=== PATIENT | male | born 1940 | race Caucasian/White ===

== ENCOUNTER → 2017-10-23 14:24 | Outpatient (CLI) | payer MEDICARE, SELFPAY ==
--- NOTE | 2017-10-23 | DI.US.S_ITS ---
PROCEDURE: US PERIPH VENOUS UP EXTREM LT COMPARISON: None. INDICATIONS: HEMATOMA OF LEFT ARM FINDINGS: There is normal compression, Doppler augmentation, and color flow identified within the left upper extremity deep veins. Specifically, the imaged portions of the subclavian and the axillary and brachial veins are within normal limits. Imaged portions of the internal jugular vein are unremarkable. The imaged portions of the basilic veins are unremarkable. No obvious hematoma is appreciated involving the imaged portion of the left biceps muscle. IMPRESSION: 1. No evidence of left upper extremity deep vein thrombosis. 2. No obvious hematoma is evident involving the left biceps muscle. Please consider MRI for better characterization of the biceps muscle, if indicated. Dictated by: Enrique Macedo M.D. on 10/23/2017 at 14:37 Approved by: Enrique Macedo M.D. on 10/23/2017 at 14:40
== END ==
PROVIDERS: PCP Family Medicine; Visit Provider Specialist/Technologist Athletic Trainer
DX: S40.022A Contusion of left upper arm, initial encounter (principal)
CPT/HCPCS: 93971

== ENCOUNTER 2024-10-28 07:27 | Emergency (ER) | payer MEDICARE, SELFPAY ==
[2024-10-28 07:37] VITALS: BP 123/61; PULSE 65; RESP 16; TEMP 36.8; O2SAT 97; BMI 27.9
--- NOTE | 2024-10-28 08:15 | DI.RAD.S_ITS ---
PROCEDURE: XR KNEE LT 4V INDICATIONS: Fall >1 wk ago, progressively worse pain, non weight bearing TECHNIQUE: 4 views of the knee were acquired. COMPARISON: None. FINDINGS AND IMPRESSION: Moderate degenerative changes of the left knee, with joint space narrowing most significant the medial compartment. No acute displaced fracture is present. No dislocation. Nxxw-ji-[id number] joint effusion. If there is high concern for further derangement, consider MRI evaluation. Dictated by: Saman Azar M.D. on 10/28/2024 at 8:35 Approved by: Saman Azar M.D. on 10/28/2024 at 8:36
--- NOTE | 2024-10-28 10:09 | ED_ITS ---
HPI - Extremity Injury (Lower) General Chief Complaint: Extremity Injury, Lower Stated Complaint: Left pain Time Seen by Provider: 10/28/24 10:05 Source: patient, RN notes reviewed and old records reviewed Mode of arrival: Family Vehicle Limitations: no limitations History of Present Illness HPI Narrative: 84-year-old male history of rheumatoid arthritis with complaint of left knee pain that began a week ago after a fall. Patient had had a recent flare in his right foot but had no trauma. He was treated with methylprednisolone and improved over some time. About 8 or 9 days ago patient had a fall onto his left side did not have any pain in the 1st day but the 2nd day had quite a bit of left knee pain and left elbow and shoulder pain. Patient states elbow and shoulder pain has a resolved left knee pain has been persistent. He states it is painful to weightbear, he was had some swelling but no redness or warmth. He did not appreciate any ecchymosis. States he can straight and bend it without much issue. Majority hip pain tends to be on the medial side and below the patella. Patient does not have any sensation of clicking or grinding, no crepitus. He notes he was had some issues in the past in that knee and has been told by an orthopedic surgeon need to be replaced at some point. Patient has never had any interventions for it. He tried some hydrocodone earlier this week which has a little bit helpful. Majority of his discomfort is with weight- bearing. States it has not been improving has been in touch with his nursing service administrator who asked that he come to the ER to be evaluated. The goal is for MR. They did discuss starting his methylprednisolone but wanted him to be evaluated 1st. Patient is accompanied by his . Related Data Home Medications Medication Instructions Recorded Confirmed methotrexate sodium 25 mg/mL 25 mg IM QWEEK 01/09/18 01/02/19 injection solution metoprolol succinate 25 mg 12.5 mg PO DAILY 01/09/18 01/02/19 tablet,extended release 24 hr sulfasalazine 500 mg tablet 1 gram PO BID 01/09/18 01/02/19 Previous Rx's Medication Instructions Recorded methylprednisolone 4 mg tablet 1 pac PO SEE INSTRUCTIONS ##1 12/11/16 oxycodone-acetaminophen 5 mg-325 1 tab PO Q4HP PRN #30 tabs 12/11/16 mg tablet (Percocet) hydrocodone 5 mg-acetaminophen 325 1 tab PO Q6H PRN pain #10 tabs 10/28/24 mg tablet methylprednisolone 4 mg tablets in See Rx Instructions PO .COMPLEX 10/28/24 a dose pack (Medrol (Gaurav)) #21 ea Allergies Allergy/AdvReac Type Severity Reaction Status Date / Time No Known Drug Allergies Allergy Verified 10/28/24 10:40 Review of Systems Review of Systems ROS Unobtainable: All systems reviewed & are unremarkable except as noted in HPI and below Patient History Medical History (Updated 10/28/24 @ 10:43 by Bozena Vera DO) Obstructive sleep apnea syndrome Primary insomnia Excessive daytime sleepiness Social History marital status: details: to [place], lives in [place] household members: spouse lives independently: Yes caregiver/support person: No housing: house Exam Narrative Exam Narrative: GENERAL: Alert and oriented x three, male in mild distress. HEENT: Head normocephalic, atraumatic, EOMI, pupils reactive, face symmetric, moist mucous membranes NECK: Supple, full range of motion CARDIOVASCULAR: Regular rate and rhythm without murmurs, rubs or gallops. RESPIRATORY: Breath sounds equal bilaterally, no wheezes rales or rhonchi. ABDOMEN: Soft, nontender. Normoactive bowel sounds all 4 quadrants. No guarding or rebound, rigidity, no mass EXTREMITIES: Normal range of motion, no clubbing. Patient was mild edema. No obvious deformity. No ecchymosis, no warmth or erythema. Patient was some mild tenderness over the lateral knee on tibial plateau. He also has a little bit of discomfort over the patella and just below. Has full range of motion without any pain. Has discomfort with the anterior drawer but no laxity appreciated with anterior-posterior drawer. Also has increased discomfort with varus but asymptomatic with valgus testing. Negative with compression test. Neurovascularly intact. 2+ dorsalis pedis. Normal sensation throughout. NEUROLOGICAL: Cranial nerves II through XII grossly intact. Moving all extremities SKIN: Warm, dry, no petechiae, no rashes or lesions. Initial Vital Signs Initial Vital Signs: Vital Signs Temperature 98.3 F 10/28/24 07:37 Pulse Rate 65 10/28/24 07:37 Respiratory Rate 16 05/20/25 07:37 Blood Pressure 123/61 05/20/25 07:37 Pulse Oximetry 97 10/28/24 07:37 Oxygen Delivery Method Room Air 10/28/24 07:37 Course Orders Ordered: ED Orders 10/28/24 08:15 XR knee LT 4V Stat Discontinued Medications Hydrocodone Bitart/Acetaminophen (Hydrocodone/Acet 5/325 Tablet) 1 tab PO NOW ONE Stop: 10/28/24 10:36 Last Admin: 10/28/24 10:43 Dose: 1 tab Documented By: SHANTHI Vital Signs Vital signs: Vital Signs - 8 hr 10/28/24 07:37 10/28/24 10:50 Temperature 98.3 F 98 F Pulse Rate 65 55 L Respiratory Rate 16 18 Blood Pressure 123/61 120/68 Pulse Oximetry 97 97 Oxygen Delivery Method Room Air Room Air MDM - Extremity Injury (Lower) MDM Narrative Medical decision making narrative: Left knee x-ray shows moderate degenerative changes of the left knee with joint space narrowing most significant medial compartment. No acute displaced fracture present. No dislocation. Oyax-fx-lfhqdcvy joint effusion. You have high concern for further derangement consider MR evaluation. 84-year-old male history of rheumatoid arthritis had a fall proximally week ago could weightbear initially that has become increasingly painful over time. Has been in contact with providers there recommended come to evaluation to ER before starting steroids for potential rheumatoid flare. On exam patient's symptoms seem most consistent with traumatic injury over flare of his rheumatoid arthriti s. Does have an orthopedic surgeon he can follow up with we will place a knee immobilizer, can weightbear as tolerated. We will give a short course of pain medication. Discharge Plan Departure Patient Disposition: Home Clinical Impression: Knee pain, left, Effusion of knee joint, left Instructions: DI for Knee Pain Activity Restrictions/Additional Instructions: Your x-ray today does show little bit of a joint effusion and a lot of degenerative changes to your knee no fractures or dislocations. I suspect your symptoms are more from the recent trauma from your fall and less likely to be from your rheumatoid arthritis. Please follow up with Orthopedic surgery and/or your nursing service administrator. Talk with your nursing service administrator if they feel steroids are warranted a prescriptions included. You can can take [place] 1-2 tablets every 6 hours as needed for pain. This medication can make you sleepy do not drive, perform hazardous activities or make any major decisions while taking it. This medication will make you constipated please take a stool softener once to twice daily until stools are so ft and regular. Weightbear as tolerated Splint Care: Keep splint clean and dry. Elevated affected body part to decrease swelling. OK to use ice pack on the affected body part. Use for 15-20 minutes each time, for 5-6x per day. If you develop worsening pain, numbness, tingling, discoloration of the affected body part, adjust the knee immobilizer, and either see your doctor for an urgent re-assessment, or return to the Emergency Department. Return to the Emergency Department for any new or worsening symptoms. Prescriptions: New hydrocodone-acetaminophen 5-325 mg tablet 1 tab PO Q6H PRN (Reason: pain) Qty: 10 0RF methylprednisolone [Medrol (Gaurav)] 4 mg tablets,dose pack See Rx Instructions .ROUTE .COMPLEX Qty: 21 0RF Rx Instructions: orally per package directions No Action methylprednisolone 4 MG tablet 1 pac PO SEE INSTRUCTIONS Qty: 1 0RF oxycodone-acetaminophen [Percocet] 5 MG/325 MG tablet 1 tab PO Q4HP PRNQty: 30 0RF metoprolol succinate 25 mg tablet extended release 24 hr 12.5 mg PO DAILY sulfasalazine 500 mg tablet 1 gram PO BID methotrexate sodium 25 mg/mL solution 25 mg IM QWEEK Stand Alone Forms: Patient Portal/API/Survey
[2024-10-28] MEDS: HYDROCODONE/ACET 5/325 TABLET 1 TAB PO (10:43)
[2024-10-28 10:50] VITALS: BP 120/68; PULSE 55; RESP 18; TEMP 36.6; O2SAT 97
== END 2024-10-28 11:01 | disposition home or self-care (01) ==
PROVIDERS: Emergency Provider Emergency Medicine
DX: M25.462 Effusion, left knee (principal)
CPT/HCPCS: 73564; 99283

== ENCOUNTER 2025-03-31 14:50 | Day surgery (SDC) | payer MEDICARE, SELFPAY ==
--- NOTE | 2025-03-31 | PATH_ITS ---
[facility] Accession Number: [id number] No. of containers..05 Tissue . 01 Material submitted: . PART A: duodenum - DUODENAL PART B: esophagus - ESOPHAGEAL PART C: stomach - ANTRAL PART D: colon - CECUM POLYPS X2 PART E: colon - COLON, TRANSVERSE POLYP . 01 Diagnosis: Part A: DUODENAL: Duodenal mucosa with no diagnostic alterations. No active inflammation and no evidence of celiac disease. . 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 No dysplasia identified. . Part C: ANTRAL: Gastric antral mucosa with no diagnostic alterations. No Helicobacter organisms identified on H/E stain. No intestinal metaplasia, dysplasia, or malignancy identified. . Part D: CECUM POLYPS X2: Tubular adenomas. . Part E: COLON, TRANSVERSE POLYP: Tubular adenoma. [facility] 04/13/2025 1149 Local . 01 Electronically signed: . Killian Karimi MD, Pathologist NPI- [id number] . 01 Gross description: . A. Received in formalin, labeled with two identifiers and duodenal biopsy, are two tong soft tissue fragments ranging from 0.3 cm to 0.4 cm in greatest dimension. Entirely submitted in cassette A1. . B. Received in formalin, labeled with two identifiers and esophagus biopsy, are two tong soft tissue fragments measuring 0.3 cm in greatest dimension each. Submitted entirely in cassette B1. . C. Received in formalin, labeled with two identifiers and antral biopsies, is a single tong soft tissue fragment measuring 0.3 cm in greatest dimension. Entirely submitted in cassette C1. . D. Received in formalin, labeled with two identifiers and cecum colon polyps, are four tong soft tissue fragments ranging from 0.2 cm to 0.4 cm in greatest dimension. Entirely submitted in cassette D1. . E. Received in formalin, labeled with two identifiers and transverse colon polyp, are two tong soft tissue fragments ranging from 0.3 cm to 0.4 cm in greatest dimension. Entirely submitted in cassette E1. ([id number]) /FRR 04/13/2025 1149 Local . 01 Pathologist provided ICD-10: D12.0, D12.3, K22.70 . 01 CPT . 103796, 925985, 981015, 186340, [id number] Specimen Comment: A courtesy copy of this report has been sent to [facility] Pathology Performed at: [address] [facility] [address] [address], [place], [place] [id number] MD Killian Karimi MD Phone: [phone]
--- NOTE | 2025-03-31 06:30 | PM.PREOP ---
Pre-operative Note Interval Note History & Physical reviewed/Exam performed by Physician: Yes Changes to H&P: No ASA Class (for procedural sedation): II
[2025-03-31 15:18] VITALS: BP 134/84; PULSE 85; RESP 20; TEMP 36.5; O2SAT 98
--- NOTE | 2025-03-31 17:02 | P.OP.EGD&C_ITS ---
Operative Date/Time/Diagnoses Date of procedure: 03/31/25 Time of procedure: 17:42 Pre-op diagnosis: Iron deficiency anemia Post-op diagnosis: other (Esophagitis, gastritis, duodenitis, colon polyps, internal hemorrhoids) Procedure & Clinicians Study performed: EGD with biopsy, colonoscopy with polypectomy Same procedure(s) as scheduled: Yes Indications: 84yo M with iron deficiency anemia Surgeon: Quincy Mesa Anesthesia Type: MAC +/- Procedure Notes SCOAP/Timeout: Performed Procedure in detail: EGD Informed consent was obtained. The procedure, its risks, benefits, and alternatives were discussed. Patient understood and agreed to proceed. The patient was placed in the left lateral decubitus position with head elevated. Sedation given per anesthesia. The video endoscope was inserted into the oropharynx and guided under direct vision into the esophagus, stomach, and duodenum which were carefully examined. The scope was retroflexed to examine the hiatus and gastroesophageal junction. Antral biopsies were obtained for Helicobacter pylori. The patient tolerated the procedure very well. There were no apparent complications. Significant EGD findings: Z-line noted at: 35cm LA Grade A esophagitis, biopsies taken to r/o Son's, old clot in distal esophagus, stigmata of recent bleeding; possible source of iron deficiency No hiatal hernia Mild antral gastritis, duodenitis, both biopsies for H pylori No ulcer or erosions in body of stomach Colonoscopy Patient placed in left lateral recumbent position. Time out was performed. Procedural sedation was administered by anesthesia. Examination began with a thorough inspection of the perianal area. There was no evidence of fissures, fistulae, external hemorrhoids or cutaneous malignancy. The colonoscope was then placed into the rectum and the lumen was insufflated with carbon dioxide. The scope was carefully advanced forward. Ultimately the cecum was intubated and confirmed by identification of the ileocecal valve, the appendiceal orifice and the confluence of the taenia. The scope was then slowly withdrawn examining the colon thoroughly in all directions. In the rectum, retroflexion of the scope was performed for inspection of the distal rectum and anal canal. ?Significant colonoscopy findings: ?1. Quality of the preparation-good, [place] 2-3, improved with irrigation/suction ?2. Two polyps in cecum and one in transverse, 5mm, adenomatous, sessile, benign appearing, all removed with cold snare and retrieved for pathology 3. Large internal hemorrhoid columns, not actively bleeding 4. No active bleeding in colon Scope withdrawal time: 12 minutes Findings: gastritis, internal hemorrhoids, polyp and other findings (esophagitis) Specimen(s): other (biopsies and polyps) Estimated Blood Loss: 0 Complications: none Post-procedure Recommendations: Colonscopy in 5 years Plan for aftercare: PACU then home Follow up: as needed Disposition: PACU
[2025-03-31 17:42] VITALS: BP 129/75; PULSE 55; RESP 14; TEMP 36.2; O2SAT 96
[2025-03-31 17:57] VITALS: BP 132/78; PULSE 65; RESP 20; TEMP 36.2; O2SAT 98
[2025-03-31 18:00] VITALS: BP 131/78; PULSE 75; RESP 14; TEMP 36.1; O2SAT 98
[2025-03-31] MEDS: LACTATED RINGERS 1,000 ML 42 ML IV (18:06)
== END 2025-03-31 18:05 | disposition home or self-care (01) ==
PROVIDERS: PCP Nurse Practitioner Family; Referring Provider Surgery; Visit Provider Surgery
PROC: 0DJ08ZZ Inspection of Upper Intestinal Tract, Via Natural or Artificial Opening Endoscopic (ICD-10-PCS; CPT 45385; principal; 2025-03-31 16:00)
PROC: 0DJD8ZZ Inspection of Lower Intestinal Tract, Via Natural or Artificial Opening Endoscopic (ICD-10-PCS; CPT 45378; 2025-03-31 16:00)
DX: D50.9 Iron deficiency anemia, unspecified (principal); K64.8 Other hemorrhoids; K29.80 Duodenitis without bleeding; K29.70 Gastritis, unspecified, without bleeding; K20.90 Esophagitis, unspecified without bleeding; Z86.0100 Personal history of colon polyps, unspecified; K22.70 Barrett's esophagus without dysplasia; D12.0 Benign neoplasm of cecum; D12.3 Benign neoplasm of transverse colon
CPT/HCPCS: 45385; 43239; J2704; J7120